=== PATIENT | female | born 1985 | race African-American/Black ===

== ENCOUNTER 2019-05-05 03:44 | Emergency (ER) | payer SELFPAY ==
--- NOTE | 2019-05-05 04:09 | PDOC ---
Attending Attestation - Resident Resident Name: Ricardo Merrill - ED Attending Attestation I have performed the following: I have examined & evaluated the patient, The case was reviewed & discussed with the resident, I agree w/resident's findings & plan - HPI HPI: 05/05/19 04:25 Pt is homeless; she [place] and the [facility]; she smells of alcohol and she is upset because her entire body hurts and she is stiff; Pt is telling in the ER because the nurse was asking her standard ontake questions of drug/alcohol use and pt felt she was being targerted. - Physicial Exam PE: 05/05/19 04:26 Pt is afebrile Smells of alcohol Pt has no pitting edema. Pt has clear lungs and soft NT ND abdomen Pt has joint pains and foot pains and back pains. - Medical Decision Making 05/05/19 05:02 Pt will have basic labs and she will get a banana bag for hydration; toradol for pain and stiffness and she will be discharged home once everything is resulted, and so long as she is feeling better. 05/05/19 05:26 CBC normal alcohol and Chem pending 05/05/19 05:52 labs normal and alcohol level is 80. Pt is getting banana bag; and analgesics. Once it returns, she will be discharged home.
[2019-05-05] MEDS ORDERED: FOLIC ACID INJECTION - 1 MG, THIAMINE HCL 100 MG, MULTIVIT INJECTION ADULT 10 ML in SOD... IVPB ONE (04:27)
[2019-05-05] MEDS ORDERED: KETOROLAC TROMETHAMINE 30 MG/1 ML VIAL IVPUSH ONE (04:58)
--- NOTE | 2019-05-05 04:58 | PDOC ---
History of Present Illness - General Chief Complaint: Back Pain Stated Complaint: BACK PAIN Time Seen by Provider: 05/05/19 03:50 History Source: Patient Exam Limitations: Clinical Condition (antagonistic towards ED staff) - History of Present Illness Initial Comments: 05/05/19 04:58 Jae Montaño is a 33F presenting with 3 years of lower back pain with exacerbation today. Initial history gathering limited due to patient agitation and refusal to answer questions about medical history. Per EMS, was brought in from [facility] for evaluation. Patient reports that she has had several years of lower back pain, accompanied by sporadic fevers, chills, and muscle aches. Sometimes has nausea and vomiting , abdominal pain, cough, headache. Denies urinary symptoms. Constipated, diet is inconsistent. Started after she had her 3rd child in April 2013 and had an epidural. Takes muscle relaxants to alleviate the pain. Went to [facility], but was dissatisfied with her care and came to [facility]. Currently homeless, children in the care of stepmother. Recently moved to [place] from [place]. Does not wish to comment on substance use history. Past History - Past Medical History Allergies/Adverse Reactions: Allergies Allergy/AdvReac Type Severity Reaction Status Date / Time No Known Allergies Allergy Verified 05/05/19 04:09 Home Medications: Ambulatory Orders NK [No Known Home Medication] 05/05/19 COPD: No Diabetes: Yes (borderline) HTN: Yes (borderline) - Immunization History Td Vaccination: Yes TDAP Vaccination: Yes - Psycho Social/Smoking Cessation Hx Smoking History: Current every day smoker Have you smoked in the past 12 months: Yes Number of Cigarettes Smoked Daily: 10 Information on smoking cessation initiated: No Hx Alcohol Use: Yes Drug/Substance Use Hx: (denies) Review of Systems - Review of Systems Able to Perform ROS?: Yes Constitutional: No: Chills, Fever HEENTM: No: Eye Pain, Blurred Vision, Nose Pain, Nose Congestion, Throat Pain, Throat Swelling Respiratory: Yes: Cough, Shortness of Breath Cardiac (ROS): Yes: Chest Pain, Lightheadedness, Palpitations ABD/GI: Yes: Constipated, Nausea. No: Diarrhea, Vomiting : No: Symptoms Reported Musculoskeletal: Yes: Back Pain (lower), Muscle Pain, Muscle Weakness Integumentary: Yes: Erythema, Flushing Neurological: Yes: Headache. No: Numbness, Unsteady Gait, Dizziness Endocrine: No: Symptoms Reported Hematologic/Lymphatic: No: Symptoms Reported All Other Systems: Reviewed and Negative *Physical Exam - Vital Signs Last Vital Signs Temp Pulse Resp BP Pulse Ox 97.7 F 78 18 113/61 99 05/05/19 04:06 05/05/19 04:06 05/05/19 04:06 05/05/19 04:06 05/05/19 04:06 - Physical Exam General Appearance: Yes: Nourished, Appropriately Dressed, Apparent Distress, Other ( female, appears stated age, in no acute distress. Smells of marijuana.) HEENT: positive: EOMI, NELLY, Normal Voice, Symmetrical, Pharynx Normal. negative: Scleral Icterus (R), Scleral Icterus (L) Neck: positive: Trachea midline, Supple. negative: Tender, Lymphadenopathy (R) , Lymphadenopathy (L) Respiratory/Chest: positive: Lungs Clear, Normal Breath Sounds. negative: Chest Tender, Respiratory Distress, Accessory Muscle Use, Crackles, Rales, Rhonchi, Wheezing Cardiovascular: positive: Regular Rhythm, Regular Rate. negative: Edema, Murmur Gastrointestinal/Abdominal: positive: Normal Bowel Sounds, Soft, Protuberent. negative: Tender, Distended, Guarding, Rebound Musculoskeletal: positive: Normal Inspection, Other (tender to paraspinal region bilaterally, no vertebral tenderness or bony deformity, no evidence of cellulitis or break in skin). negative: CVA Tenderness, Decreased Range of Motion, Vertebral Tenderness Extremity: positive: Normal Capillary Refill, Normal Inspection, Normal Range of Motion. negative: Tender Integumentary: positive: Normal Color, Dry, Warm Neurologic: positive: Fully Oriented, Alert, Normal Response ED Treatment Course - LABORATORY CBC & Chemistry Diagram: 05/05/19 04:58 05/05/19 04:58 Medical Decision Making - Medical Decision Making 05/05/19 04:58 Jae Montaño is a 33F presenting with 3 years of lower back pain with exacerbation today. Patient presentation concerning for spinal abscess vs. lumbago vs. muscle strain vs. viral infection vs. cauda equina. However, patient has stable VS, is afebrile, no tachycardia, makes infectious process less likely. Not having gait issues, saddle anesthesia, or urinary retention consistent with cauda equina. Most likely MSK. Patient complains of a multitude of complaints without significant findings on physical exam. Will evaluate via: CMP CBC Alcohol Level Serum BhCG Giving banana bag with IV Toradol for pain. Will re-assess and likely discharge home if labs do not indicate pathology requiring immediate intervention. 05/05/19 05:52 CBC unremarkable. No concerning findings on CMP. Patient is not . BAL 50.2. 05/05/19 07:[address] Herr. Please re-assess and dispo appropriately. Getting a UA, please get and follow. Discharge - Discharge Information Problems reviewed: Yes Clinical Impression/Diagnosis: Chronic lower back pain Qualifiers: Back pain laterality: bilateral Sciatica presence: without sciatica Qualified Code(s): M54.5 - Low back pain Condition: Improved Disposition: HOME - Follow up/Referral Referrals: [facility] [place] [facility] at [place] [Provider Group] - Patient Discharge Instructions Patient Printed Discharge Instructions: DI for Low Back Pain Additional Instructions: Today you were evaluated for lower back pain. Your labs do not show any evidence of an infection, anemia, or electrolyte imbalances. We gave you a medication called Toradol for pain, as well as some IV fluids. Please follow-up with your primary doctor in the next 3 days for further care. If you do not have a doctor you normally see, please follow-up with our clinic at [facility]. If you experience fevers, nausea, vomiting, chest pain , abdominal pain, become unable to walk, or have any other new or concerning symptoms, please return to the emergency room. - Post Discharge Activity
[2019-05-05] MEDS ORDERED: KETOROLAC TROMETHAMINE 30 MG/1 ML VIAL ONE (05:12)
[2019-05-05 05:18] LABS: BASO % 0.6 % (0-2.0); EOS % 2.5 % (0-4.5); HEMOGLOBIN 12.3 GM/dL (10.7-15.3); LYMPH % 37.8 % (8-40); MCH 31.5 pg (25.7-33.7); MCHC 33.3 g/dl (32.0-36.0); MEAN CELL VOLUME 94.5 fl (80-96); MEAN PLT VOLUME 8.1 fl (7.5-11.1); MONO % 6.4 % (3.8-10.2); NEUT % 52.7 % (42.8-82.8); PLATELET COUNT 229 K/MM3 (134-434); RBC 3.91 M/mm3 (3.60-5.2); RDW 14.8 % (11.6-15.6); WHITE BLOOD COUNT 7.2 K/mm3 (4.0-10.0)
[2019-05-05 05:43] LABS: ALBUMIN 3.6 g/dl (3.4-5.0); ALK PHOS 63 U/L (45-117); ANION GAP 8 MMOL/L (8-16); BILIRUBIN,TOTAL 0.2 mg/dL (0.2-1); CALCIUM 8.4 mg/dL (8.5-10.1); CHLORIDE 111 mmol/L (98-107); CO2 22 mmol/L (21-32); CREATININE 0.7 mg/dL (0.55-1.3); GLUCOSE,RANDOM 123 mg/dL (74-106); POTASSIUM 4.2 mmol/L (3.5-5.1); SGOT/AST 22 U/L (15-37); SGPT/ALT 19 U/L (13-61); SODIUM 141 mmol/L (136-145); TOT PROT 6.6 g/dl (6.4-8.2)
--- NOTE | 2019-05-05 07:16 | PDOC ---
*Physical Exam - Vital Signs Last Vital Signs Temp Pulse Resp BP Pulse Ox 97.7 F 68 18 108/67 98 05/05/19 04:06 05/05/19 06:21 05/05/19 06:21 05/05/19 06:21 05/05/19 06:21 ED Treatment Course - LABORATORY CBC & Chemistry Diagram: 05/05/19 04:58 05/05/19 04:58 - ADDITIONAL ORDERS Additional order review: Laboratory Results 05/05/19 04:58 Sodium 141 Potassium 4.2 Chloride 111 H Carbon Dioxide 22 Anion Gap 8 BUN 10.0 Creatinine 0.7 Est GFR (CKD-EPI)AfAm 131.02 Est GFR (CKD-EPI)NonAf 113.04 Random Glucose 123 H Calcium 8.4 L Total Bilirubin 0.2 AST 22 ALT 19 Alkaline Phosphatase 63 Total Protein 6.6 Albumin 3.6 Beta HCG, Quant < 1.0 Alcohol, Quantitative 80.4 H 05/05/19 04:58 RBC 3.91 MCV 94.5 MCHC 33.3 RDW 14.8 MPV 8.1 Neutrophils % 52.7 Lymphocytes % 37.8 Monocytes % 6.4 Eosinophils % 2.5 Basophils % 0.6 - Medications Given in the ED: ED Medications Discontinued Medications Generic Name Dose Route Start Last Admin Trade Name Freq PRN Reason Stop Dose Admin Ketorolac Tromethamine 30 mg 05/05/19 04:58 05/05/19 05:15 Toradol Injection - IVPUSH 05/05/19 04:59 30 mg ONCE ONE Administration Medical Decision Making - Medical Decision Making 05/05/19 07:[address] Merrill - reassess, UA, dispo - pt reassessed, was resting well but states "she doesn't want to move" but doesn't give a clear response to why. Not endorsing pain. obtain UA. 05/05/19 09:25 UA neg Pt resting well Discharge w/ clinic f.u Discharge - Discharge Information Problems reviewed: Yes Clinical Impression/Diagnosis: Chronic lower back pain Qualifiers: Back pain laterality: bilateral Sciatica presence: without sciatica Qualified Code(s): M54.5 - Low back pain Condition: Improved Disposition: HOME - Follow up/Referral Referrals: [facility] [place] [facility] at [place] [Provider Group] - Patient Discharge Instructions Patient Printed Discharge Instructions: DI for Low Back Pain Additional Instructions: Today you were evaluated for lower back pain. Your labs do not show any evidence of an infection, anemia, or electrolyte imbalances. We gave you a medication called Toradol for pain, as well as some IV fluids. Please follow-up with your primary doctor in the next 3 days for further care. If you do not have a doctor you normally see, please follow-up with our clinic at [facility]. If you experience fevers, nausea, vomiting, chest pain , abdominal pain, become unable to walk, or have any other new or concerning symptoms, please return to the emergency room. - Post Discharge Activity
[2019-05-05 09:24] LABS: PH,URINE 5.5 (5.0-8.0); URINE APPEARANCE CLEAR; URINE BILIRUBIN NEGATIVE (NEGATIVE); URINE COLOR YELLOW; URINE GLUCOSE (UA) NEGATIVE (NEGATIVE); URINE KETONE NEGATIVE (NEGATIVE); URINE LEUK ESTERASE NEGATIVE (NEGATIVE); URINE NITRITE NEGATIVE (NEGATIVE); URINE PROTEIN NEGATIVE (NEGATIVE)
[2019-05-05 09:30] VITALS: BP 108/59; PULSE 73; TEMP 98.5
== END 2019-05-05 10:20 | disposition home or self-care (01) ==
LOC: JER 03:44
PROC: 3E033GC Introduction of Other Therapeutic Substance into Peripheral Vein, Percutaneous Approach (ICD-10-PCS; principal; 2019-05-05)
PROC: 3E0333Z Introduction of Anti-inflammatory into Peripheral Vein, Percutaneous Approach (ICD-10-PCS; 2019-05-05)
DX: M54.5 Low back pain (principal); F10.10 Alcohol abuse, uncomplicated; Y90.4 Blood alcohol level of 80-99 mg/100 ml
CPT/HCPCS: 36415; 80053; 80307; 81003; 84702; 85025; 99284-25; J7030

== ENCOUNTER 2019-05-10 02:12 | Emergency (ER) | payer SELFPAY ==
[2019-05-10 03:25] VITALS: BP 125/77; PULSE 66; TEMP 98.4
[2019-05-10] MEDS ORDERED: ACETAMINOPHEN 500 MG TABLET (FP) PO ONE (03:56)
--- NOTE | 2019-05-10 04:08 | PDOC ---
History of Present Illness - General Chief Complaint: Pain Stated Complaint: ABD PAIN Time Seen by Provider: 05/10/19 03:46 History Source: Patient Exam Limitations: No Limitations - History of Present Illness Initial Comments: 05/10/19 03:57 33YOF with h/o chronic back pain, LTCS x3, and heavy smoker (cigarettes) who p/ w exacerbation of her chronic low back pain, also suprapubic pain (patient points) for the past 2 days, and left foot pain since dropping and object on it roughly two hours ago. She states the low back pain is unchanged in character from baseline but feels worse and she attributes it to heavy lifting which she does for work. The suprapubic pain she notes is constant but worse when she urinates. States she has been walking on her left foot since the injury without issue, has not yet taken any medication for pain. Past History - Past Medical History Allergies/Adverse Reactions: Allergies Allergy/AdvReac Type Severity Reaction Status Date / Time No Known Allergies Allergy Verified 05/05/19 04:09 Home Medications: Ambulatory Orders Cephalexin [Keflex] 500 mg PO BID #10 capsule 05/10/19 COPD: No Diabetes: Yes (borderline) HTN: Yes (borderline) - Immunization History Td Vaccination: Yes TDAP Vaccination: Yes - Psycho Social/Smoking Cessation Hx Smoking History: Current every day smoker Have you smoked in the past 12 months: No Number of Cigarettes Smoked Daily: 20 Information on smoking cessation initiated: No Hx Alcohol Use: Yes Drug/Substance Use Hx: No Review of Systems - Review of Systems Able to Perform ROS?: Yes Comments:: GEN: no fever, chills, night sweats, generalized weakness, malaise, or unintentional weight change HEENT: no ear pain, congestion, sore throat, rhinorrhea, nosebleed, vision change, or eye pain CV: no chest pain, palpitations, lightheadedness, syncope, edema, or exercise intolerance RESP: no cough, wheezing, or SOB GI: suprapubic abdominal pain, no nausea, vomiting, diarrhea, constipation, appetite change, or white/black/bloody stool : no dysuria, hematuria, frequency, incontinence, retention, pruritis, bleeding, or discharge MSK: back pain, foot pain, otherwise no muscle weakness or pain, muscle wasting , or additional joint swelling or pain NEURO: no headache, seizure, vertigo, imbalance, numbness, tingling, focal weakness, or difficulty walking/talking PSYCH: no insomnia, behavior change, SI, HI, or substance use SKIN: no prutitis, excessive dryness, jaundice, rash, cuts, or unexplained bruises ROS otherwise negative except as noted in HPI *Physical Exam - Vital Signs Last Vital Signs Temp Pulse Resp BP Pulse Ox 98.4 F 66 20 125/77 99 05/10/19 02:35 05/10/19 02:35 05/10/19 02:35 05/10/19 02:35 05/10/19 02:35 - Physical Exam Comments: GENERAL: a bit bizarre affect, A/Ox4, no distress, answers questions intermittently while arguing loudly with significant other HEENT: PERRLA, EOMI, moist mucous membranes NECK/BACK: no midline ttp, no spinal stepoff or deformity, no hematoma, full ROM , neck supple CARDIOVASCULAR: regular rate/rhythm, normal S1S2, no MGR, strong peripheral pulses, capillary refill <2 seconds, extremities wwp, no edema LUNGS/RESPIRATORY: no respiratory distress, CTAB GI/ABDOMEN: symmetric polm-[id number], normoactive BS, soft, no ttp, no midline pulsatile masses : no CVA tenderness EXTREMITIES: no muscle atrophy, no acute deformity SKIN: warm and dry, no pallor, no jaundice, no rash, no bruising, no skin breakdown, no cuts, no lesions NEUROLOGICAL: GCS 15, CN II-XII grossly intact, 5/5 strength proximally and distally, no facial droop, ambulates to bathroom with normal gait Medical Decision Making - Medical Decision Making Adult female Pt p/w painful urination. Initial Vital Signs Temp Pulse Resp BP Pulse Ox 98.4 F 66 20 125/77 99 05/10/19 02:35 05/10/19 02:35 05/10/19 02:35 05/10/19 02:35 05/10/19 02:35 Exam: As noted in Physical Exam section. DDX IBNLT: most likely UTI, less likely pyelonephritis, unlikely to be other infectious etiology as patient has no vaginal pain/discharge e.g. cervicitis, PID, TOA, other STD/STI, vaginal lesion, vulvuvaginal candidiasis, interstitial cystitis, neurogenic bladder, renal colic, obstructive uropathy, ectopic, ovarian torsion, ovarian cyst, endometritis, malignancy, hernia, appendicitis, proctitis, sigmoid diverticulitis wwo abscess or perforation, endometriosis, primary dysmenorrhea, etc. Patient denies any change she could be . W/U ordered: UA UCx Laboratory Tests 05/10/19 05/10/19 04:20 04:20 Urine Color Yellow Urine Appearance Cloudy Urine pH 7.0 D Ur Specific [place] 1.023 Urine Protein Negative Urine Glucose (UA) Negative Urine Ketones Negative Urine Blood Negative Urine Nitrite Negative Urine Bilirubin Negative Urine Urobilinogen 1.0 Ur Leukocyte Esterase 1+ H Urine WBC (Auto) 7 Urine RBC (Auto) 1 Urine Casts (Auto) 5 U Epithel Cells (Auto) 18.8 Urine Bacteria (Auto) 470.6 Urine HCG, Qual Negative The Pt is appropriate for discharge with close outpatient follow up. Workup is not concerning for emergency-level pathology at this time. The Pt is comfortable with this plan and will follow up with her primary care provider in 1-3 days. She will take OTC pain medications, pyridium, etc. for pain. E-Rx sent to her pharmacy for abx after first dose given here in the ED. Specific return precautions are discussed and she will come back to the ER if necessary. Discharge - Discharge Information Problems reviewed: Yes Clinical Impression/Diagnosis: UTI (urinary tract infection) Qualifiers: Urinary tract infection type: acute cystitis Hematuria presence: without hematuria Qualified Code(s): N30.00 - Acute cystitis without hematuria Condition: Stable Disposition: HOME - Admission No - Additional Discharge Information Prescriptions: Cephalexin [Keflex] 500 mg PO BID #10 capsule - Follow up/Referral Referrals: [facility] Internal [facility] at [place] [Provider Group] - Patient Discharge Instructions Patient Printed Discharge Instructions: DI for Low Back Pain, DI for Urinary Tract Infection (UTI) Additional Instructions: You were seen in the ER for back pain similar to your chronic back pain, and also low abdominal pain, and foot pain. We gave you Tylenol with some improvement. You do have a urinary tract infection. You are not . We are giving you referral information for a new primary care provider, so please call them and schedule an appointment. At the appointment, discuss your pain management regimen with them so that you can have a plan to stay on top of your back pain. If you have any new or worsening symptoms please come back to the ER at any time (24 hours a day), especially for fever, new numbness, new tingling new weakness, new urinary or bowel incontinence or retention, or other new symptoms. If you are having severe or life threatening symptoms, or symptoms that make it unsafe to drive or have someone drive you, please call 911. 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 - Post Discharge Activity
[2019-05-10] MEDS ORDERED: ACETAMINOPHEN 325 MG TABLET (FP) ONE (04:18)
[2019-05-10 04:36] LABS: EPI CELLS 18.8 /HPF (0-5/HPF); HYALINE CASTS 5 /lpf (0-8); URINE APPEARANCE CLOUDY; URINE BACTERIA 470.6 /hpf (NEGATIVE); URINE BILIRUBIN NEGATIVE (NEGATIVE); URINE COLOR YELLOW; URINE GLUCOSE (UA) NEGATIVE (NEGATIVE); URINE KETONE NEGATIVE (NEGATIVE); URINE LEUK ESTERASE 1+ (NEGATIVE); URINE NITRITE NEGATIVE (NEGATIVE); URINE PROTEIN NEGATIVE (NEGATIVE); URINE RBC 1 /hpf (0-4); URINE WBC 7 /hpf (0-5)
[2019-05-10] MEDS ORDERED: CEPHALEXIN MONOHYDRATE 500 MG CAPSULE (UD) PO ONE (05:05)
[2019-05-10] MEDS ORDERED: CEPHALEXIN MONOHYDRATE 500 MG CAPSULE (UD) ONE (05:13)
--- NOTE | 2019-05-10 08:20 | PDOC ---
Attending Attestation - Resident Resident Name: Peyton Alexander - ED Attending Attestation I have performed the following: I have examined & evaluated the patient, The case was reviewed & discussed with the resident, I agree w/resident's findings & plan, Exceptions are as noted
== END 2019-05-10 05:30 | disposition home or self-care (01) ==
LOC: JER 02:12
DX: N30.00 Acute cystitis without hematuria (principal); F17.210 Nicotine dependence, cigarettes, uncomplicated; I10 Essential (primary) hypertension; R73.03 Prediabetes
CPT/HCPCS: 81003; 84703; 87086; 99283-25